=== PATIENT | male | born 2000 | race Two or more races ===

== ENCOUNTER → 2019-05-02 | Outpatient (CLI) | payer OTHER ==
--- NOTE | 2019-05-02 13:26 | KCIC ---
MRI Lumbar Spine without contrast History: Left lower extremity pain and weakness Technique: Multiplanar, multi sequential noncontrast MR imaging was performed of the lumbar spine. Comparison: June 15, 2016 Findings: Lumbar vertebral body stature and AP alignment are maintained. There is again ralk-au-wihawbrx narrowing L5-S1 intervertebral disc space, to lesser degree at L4-5 overall similar. There is no new significant marrow edema. There is posterior L4-5 annular tear, more apparent on this exam. Conus terminates near T12-L1. L1-L2, L2-3: These levels were not included on the axial images, spinal canal and neural foramina overall adequate L3-L4: Neural foramina and spinal canal are adequate. L4-L5: There is again very shallow posterior extrusion extending slightly below the intervertebral disc space centrally without neural impingement. Spinal canal and neural foramina remain adequate. L5-S1: There is small left laminectomy defect. Previously seen protrusion/extrusion in the left lateral recess is no longer present. There is negligible disc osteophyte complex. There is no displacement of the descending S1 nerve roots. There is mild cystic dilatation of the descending left S1 nerve root sleeve. No contrast was given to evaluate for underlying enhancing fibrosis. Neural foramina are overall adequate. Impression: 1. There is no lumbar spinal stenosis or neural foramina compromise. Previously seen extrusion/protrusion at L5-S1 is no longer present. There is again very shallow posterior extrusion extending below the L4-5 intervertebral disc space centrally without neural impingement. There is degenerative disc disease greatest at L5-S1, to a lesser degree at L4-5. Electronically signed by: Alexis Jay MD (05/02/2019 1:23 PM) [facility]-[email or web address]
== END | disposition home or self-care (01) ==
LOC: KCIC MRI 12:27
PROVIDERS: ATTEND Family Medicine
DX: M48.07 Spinal stenosis, lumbosacral region (principal); M51.37 Other intervertebral disc degeneration, lumbosacral region
CPT/HCPCS: 72148

== ENCOUNTER 2020-01-10 11:13 | Emergency (ER) | payer OTHER ==
[~2020-01-10] VITALS: Ht 188 cm; Wt 108.8 kg
[2020-01-10 11:17] VITALS: BP 162/90
--- NOTE | 2020-01-10 11:37 | PHYS DOC ---
Past Medical History Past Medical History: Other Additional Past Medical Histor: bulging disks, sciatica Past Surgical History: Other Additional Past Surgical Histo: discectomy Smoking Status: Current Every Day Smoker Alcohol Use: None General Adult EDM: Chief Complaint: WRIST PAIN HPI: HPI: Patient is a 19 year old male who presents with right wrist pain after tripping and falling onto his wrist 1 hour prior to arrival. He denies hitting his head or any loss of consciousness. Patient rates pain 6 out of 10, pain is worse with movement of his wrist, pain radiates from wrist into fingers, patient did not take any treatment prior to arrival, he reports that movement aggravates pain. Review of Systems: Review of Systems: Constitutional: Denies fever or chills. [] Musculoskeletal: See HPI Integument: Denies rash. [] Neurologic: Denies headache, focal weakness or sensory changes. [] Psychiatric: Denies depression or anxiety. [] Heart Score: Risk Factors: Risk Factors: DM, Current or recent (<one month) smoker, HTN, HLP, family history of CAD, obesity. Risk Scores: Score 0 - 3: 2.5% MACE over next 6 weeks - Discharge Home Score 4 - 6: 20.3% MACE over next 6 weeks - Admit for Clinical Observation Score 7 - 10: 72.7% MACE over next 6 weeks - Early Invasive Strategies Allergies: Allergies: Allergies Coded Allergies Type Severity Reaction Last Updated Verified No Known Drug Allergies 09/21/19 No Physical Exam: PE: Constitutional: Well developed, well nourished, no acute distress, non-toxic appearance. [] HENT: Normocephalic, atraumatic, bilateral external ears normal, nose normal. [] Eyes: PERRLA, EOMI, conjunctiva normal, no discharge. [] Neck: Normal range of motion, no stridor. [] Cardiovascular:Heart rate regular rhythm Lungs & Thorax: Respirations even and unlabored, no retractions, no respiratory distress Skin: Warm, dry, no erythema, no rash. [] Extremities: Right hand/right wrist/right wrist: no cyanosis; swelling to the radial aspect of R wrist and hand, sensation intact, cap refill less than 2 se conds, radial pulse 2+, full extension and flexion of all 5 digits with pain in hand and limited range of motion of wrist. Neurologic: Alert and oriented X 3, no focal deficits noted. [] Psychologic: Affect normal, judgement normal, mood normal. [] EKG: EKG: [] Radiology/Procedures: Radiology/Procedures: PROCEDURE: HAND RIGHT 3V WRIST 3V RIGHT, HAND RIGHT 3V History: Pain. Reason: fell onto hand/wrist / Spl. Instructions: / History: Technique: 3 views right wrist and 3 views right hand. Comparison: None. Findings: Acute comminuted intra-articular distal radial fracture with dorsal angulation. Possible nondisplaced ulnar styloid fracture. No dislocation. Normal alignment of the hand. Impression: 1. Acute comminuted intra-articular distal radial fracture with dorsal angulation. 2. Possible nondisplaced ulnar styloid fracture. [] Course & Med Decision Making: Course & Med Decision Making Pertinent Labs and Imaging studies reviewed. (See chart for details) [] Dragon Disclaimer: Dragon Disclaimer: This electronic medical record was generated, in whole or in part, using a voice recognition dictation system. Departure Departure Impression: Primary Impression: Closed comminuted fracture of proximal radius Qualified Codes: S52.181A - Other fracture of upper end of right radius, initial encounter for closed fracture Additional Impression: Fracture of right ulnar styloid Qualified Codes: S52.614A - Nondisplaced fracture of right ulna styloid process, initial encounter for closed fracture Disposition: 01 HOME, SELF-CARE Condition: STABLE Referrals: MILADIS OLMOS MD (PCP) MIRIAM PINK II, MD Patient Instructions: Radius Fracture with [facility] Additional Instructions: Fill prescription(s) and use as directed. Recommend application of ice, elevation, and rest of affected extremity. Wear the splint that was placed until follow up appointment, call Dr. Pink's office for follow up appointment. Return to the ER if your symptoms worsen. Scripts Hydrocodone Bit/Acetaminophen (HYDROCODONE-APAP 5-325 ) 1 Tab Tablet 1 TAB PO PRN Q6HRS PRN for PAIN for 5 Days, #20 TAB 0 Refills Prov: TASNEEMNORMAASHLEY CANDY FORMING MACHINE OPERATOR 01/10/20 Justicifation of Admission Dx: Justifications for Admission: Justification of Admission Dx: N/A Splinting Splinting : Location: R wrist Hand-Made Type: orthoglass Splint: sugar-tong Pre-Proc Neuro Vasc Exam: normal Post-Proc Neuro Vasc Exam: normal, unchanged from pre-exam ASHLEY MASON CANDY FORMING MACHINE OPERATOR Jan 10, 2020 11:37
[2020-01-10] MEDS ORDERED: HYDROcodone/APAP 5/325MG 1 TAB TABLET PO ONE (12:30)
--- NOTE | 2020-01-10 12:30 | RAD ---
WRIST 3V RIGHT, HAND RIGHT 3V History: Pain. Reason: fell onto hand/wrist / Spl. Instructions: / History: Technique: 3 views right wrist and 3 views right hand. Comparison: None. Findings: Acute comminuted intra-articular distal radial fracture with dorsal angulation. Possible nondisplaced ulnar styloid fracture. No dislocation. Normal alignment of the hand. Impression: 1. Acute comminuted intra-articular distal radial fracture with dorsal angulation. 2. Possible nondisplaced ulnar styloid fracture. Electronically signed by: Monico Al DO (01/10/2020 12:28 PM) [id number]
[2020-01-10] MEDS ORDERED: HYDR-2761 PO (12:38)
== END 2020-01-10 12:57 | disposition home or self-care (01) ==
LOC: ER 11:13
DX: S52.181A Other fracture of upper end of right radius, initial encounter for closed fracture (principal); S52.614A Nondisplaced fracture of right ulna styloid process, initial encounter for closed fracture; F17.200 Nicotine dependence, unspecified, uncomplicated; W01.0XXA Fall on same level from slipping, tripping and stumbling without subsequent striking against object, initial encounter; Y93.89 Activity, other specified; Y92.89 Other specified places as the place of occurrence of the external cause; Y99.8 Other external cause status
CPT/HCPCS: 29125; 73110; 73130; 99284; A4565

== ENCOUNTER 2020-04-29 17:31 | Emergency (ER) | payer OTHER ==
[~2020-04-29] VITALS: Ht 188 cm; Wt 100.0 kg
[~2020-04-29 17:31] MED LIST changes: -ALBU2.5V8 INH; -AZIT250T6 PO; -IBUP-1007 PO; -METH4TAB2 PO; -ONDA4TAB12 PO
[2020-04-29] MEDS ORDERED: IV NORMAL SALINE 1000ML BAG 1,000 ML IV SCH (18:13)
[2020-04-29] MEDS ORDERED: methylPREDNISolone SOD SUCC PF 125 MG/2 ML VIAL. IV ONE (18:15)
[2020-04-29] MEDS ORDERED: cefTRIAXone IV Push 1 GM VIAL. IVP ONE (18:15)
[2020-04-29] MEDS ORDERED: AZITHRMYCN 500MG IVPB FOR OMNI 250 ML IV ONE (18:15)
[2020-04-29] MEDS ORDERED: fentaNYL PF VIAL 100 MCG/2 ML VIAL IVP ONE (19:00)
[2020-04-29 19:16] LABS: BASO # 0.1 x10^3/uL (0.0-0.2); BASO % 1 % (0-3); EOS # 0.1 x10^3/uL (0.0-0.7); EOS % 0 % (0-3); HEMATOCRIT 35.2 % (39.0-53.0); HEMOGLOBIN 12.3 g/dL (13.0-17.5); LYMPH # 1.7 x10^3/uL (1.0-4.8); LYMPH % 10 % (24-48); MEAN CORPUSCULAR HEMOGLOBIN 28 pg (25-35); MEAN CORPUSCULAR HGB CONC 35 g/dL (31-37); MEAN CORPUSCULAR VOLUME 81 fL (79-100); MONO # 0.4 x10^3/uL (0.0-1.1); MONO % 3 % (0-9); NEUT # 15.2 x10^3/uL (1.8-7.7); NEUT % 87 % (31-73); PLATELET COUNT 412 x10^3/uL (140-400); RED BLOOD COUNT 4.36 x10^6/uL (4.30-5.70); WHITE BLOOD COUNT 17.5 x10^3/uL (4.0-11.0)
[2020-04-29 19:25] LABS: GFR 94.3
[2020-04-29 19:32] LABS: ALBUMIN 3.2 g/dL (3.4-5.0); ALBUMIN/GLOBULIN RATIO 0.7 (1.0-1.7); TOTAL BILIRUBIN 0.6 mg/dL (0.2-1.0); TOTAL PROTEIN 8.1 g/dL (6.4-8.2)
--- NOTE | 2020-04-29 19:42 | PHYS DOC ---
Past Medical History Past Medical History: Other Additional Past Medical Histor: bulging disks, sciatica Past Surgical History: Other Additional Past Surgical Histo: discectomy,BACK X2 Smoking Status: Former Smoker Alcohol Use: Rarely General Adult EDM: Chief Complaint: SHORTNESS OF BREATH HPI: HPI: Patient is a 19 year old male who presents with 1 week of nausea, dizziness, exertional shortness of breath, cough, fever. He denies chest pain but states when he takes a deep breath he begins to cough and then he has chest pain. Patient has a history of lumbar surgeries, sciatica, former smoker. He was sent over by Dr. Coley's office with bilateral pneumonia. Patient states that he had a Covid test yesterday and he will find out what his results are tomorrow. Laury ent is tachypneic. He is tachycardic. Review of Systems: Review of Systems: Constitutional: + fever or chills. [] Eyes: Denies change in visual acuity. [] HENT: Denies nasal congestion or sore throat. [] Respiratory: + cough or +shortness of breath. [] Cardiovascular: + chest pain with taking a deep breath and cough or denies edema. [] GI: Denies abdominal pain. + nausea, denies vomiting, bloody stools or diarrhea. [] : Denies dysuria. [] Musculoskeletal: + back pain or denies joint pain. [] Integument: Denies rash. [] Neurologic: Denies headache, focal weakness or sensory changes. +Dizziness when up and moving and having shortness of breath [] Endocrine: Denies polyuria or polydipsia. [] Lymphatic: Denies swollen glands. [] Psychiatric: Denies depression or anxiety. [] Heart Score: Risk Factors: Risk Factors: DM, Current or recent (<one month) smoker, HTN, HLP, family history of CAD, obesity. Risk Scores: Score 0 - 3: 2.5% MACE over next 6 weeks - Discharge Home Score 4 - 6: 20.3% MACE over next 6 weeks - Admit for Clinical Observation Score 7 - 10: 72.7% MACE over next 6 weeks - Early Invasive Strategies Current Medications: Current Medications Medications (Trade) Dose Ordered Sig/Patricia Start Time Stop Time Status Last Admin Dose Admin Azithromycin 250 ml @ 250 mls/hr 1X ONCE 04/29/20 18:15 04/29/20 19:14 DC Ceftriaxone Sodium (Rocephin) 1 gm 1X ONCE 04/29/20 18:15 04/29/20 18:16 DC Fentanyl Citrate (Fentanyl 2ml Vial) 50 mcg 1X ONCE 04/29/20 19:00 04/29/20 19:01 DC Methylprednisolone Sodium Succinate (SOLU-Medrol 125MG VIAL) 125 mg 1X ONCE 04/29/20 18:15 04/29/20 18:16 DC Sodium Chloride 1,000 ml @ 1,000 mls/hr Q1H 04/29/20 18:13 04/29/20 19:12 DC Allergies: Allergies: Allergies Coded Allergies Type Severity Reaction Last Updated Verified No Known Drug Allergies 09/21/19 No Physical Exam: PE: Constitutional: Well developed, well nourished, no acute distress, non-toxic appearance. [] HENT: Normocephalic, atraumatic, bilateral external ears normal, oropharynx moist, no oral exudates, nose normal. [] Eyes: PERRLA, EOMI, conjunctiva normal, no discharge. [] Neck: Normal range of motion, no tenderness, supple, no stridor. [] Cardiovascular:Heart rate regular rhythm, no murmur [] Lungs & Thorax: Bilateral upper breath sounds clear and lower diminished to auscultation [] Abdomen: Bowel sounds normal, soft, no tenderness, no masses, no pulsatile masses. [] Skin: Warm, dry, no erythema, no rash. [] Back: No tenderness, no CVA tenderness. [] Extremities: No tenderness, no cyanosis, no clubbing, ROM intact, no edema. [] Neurologic: Alert and oriented X 3, normal motor function, normal sensory function, no focal deficits noted. [] Psychologic: Affect normal, judgement normal, mood normal. [] Current Patient Data: Labs: Laboratory Tests Test 04/29/20 18:45 White Blood Count 17.5 x10^3/uL (4.0-11.0) H Red Blood Count 4.36 x10^6/uL (4.30-5.70) Hemoglobin 12.3 g/dL (13.0-17.5) L Hematocrit 35.2 % (39.0-53.0) L Mean Corpuscular Volume 81 fL (79-100) Mean Corpuscular Hemoglobin 28 pg (25-35) Mean Corpuscular Hemoglobin Concent 35 g/dL (31-37) Red Cell Distribution Width 14.0 % (11.5-14.5) Platelet Count 412 x10^3/uL (140-400) H Neutrophils (%) (Auto) 87 % (31-73) H Lymphocytes (%) (Auto) 10 % (24-48) L Monocytes (%) (Auto) 3 % (0-9) Eosinophils (%) (Auto) 0 % (0-3) Basophils (%) (Auto) 1 % (0-3) Neutrophils # (Auto) 15.2 x10^3/uL (1.8-7.7) H Lymphocytes # (Auto) 1.7 x10^3/uL (1.0-4.8) Monocytes # (Auto) 0.4 x10^3/uL (0.0-1.1) Eosinophils # (Auto) 0.1 x10^3/uL (0.0-0.7) Basophils # (Auto) 0.1 x10^3/uL (0.0-0.2) Platelet Estimate Pending Laboratory Tests 04/29/20 18:45 Vital Signs: Vital Signs Date Time Temp Pulse Resp B/P (MAP) Pulse Ox O2 Delivery O2 Flow Rate FiO2 04/29/20 18:09 98.4 92 24 128/77 (94) Room Air 98.0 98.4 EKG: EK and read by Dr. Rehman as sinus rhythm and no STEMI Radiology/Procedures: Radiology/Procedures: [] Impression: [facility] [address] [place] [address] IMAGING REPORT Signed PATIENT: JENNIFER DOSS LACCOUNT: [id number] : 2000 LOCATION: [facility] AGE: 19 SEX: M EXAM STATUS: REG CLI ORD. PHYSICIAN: MILADIS COLEY MD REASON: COUGH PROCEDURE: CHEST PA & LATERAL CHEST PA LATERAL INDICATION: COUGH COMPARISON STUDY: None. FINDINGS: Lungs: Normal lung volume. Bilateral perihilar and basilar heterogeneous opacity. Indistinct central vasculature. Pleura: No pleural effusion or pneumothorax. Heart and Mediastinum: The cardiomediastinal silhouette is normal. The great vessels of the thorax are normal. Bones and Soft Tissues: The bones and soft tissues are within normal limits. IMPRESSION: Bilateral perihilar and basilar heterogeneous opacities, probably representing an infectious process although pulmonary edema could have a similar appearance. Electronically signed by: Junior Kee MD (04/29/2020 11:40 AM) [id number] DICTATED and SIGNED BY: JUNIOR KEE MD DATE: 04/29/20 1140 [facility] [address] [place] [address] IMAGING REPORT Signed PATIENT: JENNIFER DOSSOUNT: [id number] : 2000 LOCATION: ER AGE: 19 SEX: M EXAM STATUS: REG ER ORD. PHYSICIAN: JOÃO VALDEZ APRN REASON: soa, pain with breathing, PUI PROCEDURE: CT ANGIOGRAPHY CHEST Exam: CT of chest with contrast INDICATION: Short of air TECHNIQUE: Sequential axial images through the chest obtained following the administration of 100 mL of Isovue-370 IV contrast. Sagittal and coronal reformatted images were reconstructed from the axial data and reviewed. 3-D reformatted images were reconstructed from the axial data and reviewed. Comparisons: Chest x-ray same day FINDINGS: Visualized portions of the thyroid are unremarkable. No enlarged mediastinal lymph nodes are identified. Heart size is normal. No pericardial effusion. Thoracic aorta has a normal course and caliber. Pulmonary artery is not enlarged. No pulmonary embolus identified within the main, lobar or segmental pulmonary arteries. Airways are patent. Patchy diffuse groundglass opacity and consolidative changes noted predominantly at the upper lobes bilaterally. No pleural effusion or thickening. Visualized upper abdomen is unremarkable. No suspicious osseous lesions or acute fractures. IMPRESSION: 1. Diffuse bilateral airspace disease with peripheral sparing noted predominantly at the upper lungs. Findings favored represent atypical/viral infection. Correlate for immunocompromised status. 2. No pulmonary embolus identified within the main, lobar or segmental pulmonary arteries. Exposure: One or more of the following in the visualized dose reduction techniques were utilized for this examination: 1. Automated exposure control 2. Adjustment of the MA and/or KV according to patient size 3. Use of iterative of reconstructive technique Electronically signed by: Sabino Vazquez MD (04/29/2020 9:56 PM) [facility] DICTATED and SIGNED BY: SABINO VAZQUEZ MD DATE: 04/29/202155 Course & Med Decision Making: Course & Med Decision Making Pertinent Labs and Imaging studies reviewed. (See chart for details) COVID-19 CRITERIA: The patient was evaluated during the global COVID-19 pandemic, and that diagnosis was suspected/considered upon their initial presentation. Their evaluation, treatment and testing was consistent with current guidelines for patients who present with complaints or symptoms that may be related to COVID-19. See HPI. Lungs are clear in upper lobes and diminished in lower lobes. Abdomen soft and nontender. Skin pink warm and dry. Speaks in full clear sentences. Patient had a dry cough. No extremity edema. Is getting Rocephin and azithromycin IV antibiotic and a liter of normal saline. EKG shows sinus rhythm and no STEMI. White blood cell count is 17.5. Lactic acid is normal. ABG is read by Dr Rehman and he says its ok. Patient is tachypneic, has a D-dimer elevated, and is tachycardic with pleuritic pain with breathing. Assuming that he likely has Covid, pulmonary embolism is a high risk differential. For these reason a PE should be ruled out. Dr Rehman agrees with this observation and care plan. Patient is satting at 95% on room air. Heart rate remains at 100. Patient to get a total of 2 L of normal saline in the ED plus antibiotics through the IV. Patient is discharged home on azithromycin and Medrol Dosepak. I have also given the inhaler. [] Dragon Disclaimer: Dragon Disclaimer: This electronic medical record was generated, in whole or in part, using a voice recognition dictation system. COVID-19 Patient Risks: Age 65 or older: No Sign of co-morbidity: Yes Exp to person + for COVID: No Exp to PUI: No Travel from affected area: No Lower respiratory symptoms: Yes Fever: Yes PPE Use: Full PPE with N95 mask or PAPR: Yes Departure Departure Impression: Primary Impression: Pneumonia Qualified Codes: J18.9 - Pneumonia, unspecified organism Additional Impression: Person under investigation for COVID-19 Disposition: 01 DC HOME SELF CARE/HOMELESS Condition: STABLE Referrals: NO PCP (PCP) Patient Instructions: Pneumonia, Adult Additional Instructions: Follow-up with your primary care provider. Return to the emergency room if you begin having severe shortness of breath or chest pain. Drink plenty of fluids. Take ibuprofen for your pain. Take all medications as prescribed. Take the medication with food if possible as it could upset your stomach. Scripts Albuterol Sulfate (PROAIR HFA INHALER) 8.5 Gm Hfa.aer.ad 1 PUFF INH PRN Q6HRS PRN for SHORTNESS OF BREATH, #1 INHALER 0 Refills Prov: BAFJOÃO MOULTON DICE MANAGER 04/29/20 Azithromycin (AZITHROMYCIN TABLET) 250 Mg Tablet 1 PKG PO UD for 5 Days, #6 TAB 0 Refills 2 the first day followed by 1 for days 2-5 Prov: BAFLINDA MOULTONA M DICE MANAGER 04/29/20 Ibuprofen (IBUPROFEN) 600 Mg Tablet 600 MG PO PRN Q6HRS PRN for INFLAMMATION, #25 TAB Prov: JOÃO VALDEZ DICE MANAGER 04/29/20 Ondansetron (ONDANSETRON ODT) 4 Mg Tab.rapdis 1 TAB PO PRN Q6-8HRS, #16 TAB Prov: BAFLINDA MOULTONA Tiesha DICE MANAGER 04/29/20 Methylprednisolone (MEDROL) 4 Mg Tab.ds.pk 1 PKG PO UD, #1 PKG Prov: JOÃO VALDEZ DICE MANAGER 04/29/20 BAFLINDA MOULTONA Tiesha DICE MANAGER Apr 29, 2020 19:41
[2020-04-29 19:57] LABS: % BANDS 4 % (0-9); % LYMPHS 18 % (24-48); % MONOS 3 % (0-10); % MYELOS 1 % (0-0); % SEGS 74 % (35-66); PLT ESTIMATE INCREASED (ADEQUATE); TOXIC GRANULATION SLIGHT
[2020-04-29 19:58] LABS: SCHISTOCYTES OCC
[2020-04-29] MEDS ORDERED: POTASSIUM CHLORIDE 20 MEQ TABLET.ER. PO ONE (20:00)
[2020-04-29] MEDS ORDERED: ONDANSETRON PF 4 MG/2 ML VIAL. IVP ONE (20:00)
[2020-04-29 20:27] LABS: BASE EXCESS COOX -2 mmol/L (-3-3); HCO3 COOX 21 mmol/L (21-28); METHEMOGLOBIN 0.5 % (0.0-1.9); OXYHEMOGLOBIN 93.1 %; PCO2 COOX 30 mmHg (35-46); PO2 COOX 69 mmHg (85-108); SAT O2 COOX 94 % (92-99)
[2020-04-29 20:55] LABS: PROTHROMBIN TIME PATIENT 16.2 SEC (11.7-14.0)
[2020-04-29] MEDS ORDERED: IV NORMAL SALINE 1000ML BAG 1,000 ML IV ONE (21:15)
[2020-04-29 21:17] VITALS: BP 115/69
[2020-04-29 21:23] LABS: BACTERIA,URINE 0 /HPF (0-FEW); BILIRUBIN,URINE NEGATIVE (NEG); CLARITY,URINE CLEAR; COLOR,URINE YELLOW; NITRITE,URINE NEGATIVE (NEG); PH,URINE 6.5 (<5.0-8.0); PROTEIN,URINE NEGATIVE (NEG-TRACE); UROBILINOGEN,URINE 0.2 mg/dL (0.2 mg/dL); WBC,URINE RARE /HPF (0-4)
[2020-04-29] MEDS ORDERED: CONTRAST GIVEN. MC PRN (21:45)
[2020-04-29] MEDS ORDERED: IOHEXOL 350 MG/ML 100 ML VIAL. IV ONE (21:45)
--- NOTE | 2020-04-29 21:59 | RAD ---
Exam: CT of chest with contrast INDICATION: Short of air TECHNIQUE: Sequential axial images through the chest obtained following the administration of 100 mL of Isovue-370 IV contrast. Sagittal and coronal reformatted images were reconstructed from the axial data and reviewed. 3-D reformatted images were reconstructed from the axial data and reviewed. Comparisons: Chest x-ray same day FINDINGS: Visualized portions of the thyroid are unremarkable. No enlarged mediastinal lymph nodes are identified. Heart size is normal. No pericardial effusion. Thoracic aorta has a normal course and caliber. Pulmonary artery is not enlarged. No pulmonary embolus identified within the main, lobar or segmental pulmonary arteries. Airways are patent. Patchy diffuse groundglass opacity and consolidative changes noted predominantly at the upper lobes bilaterally. No pleural effusion or thickening. Visualized upper abdomen is unremarkable. No suspicious osseous lesions or acute fractures. IMPRESSION: 1. Diffuse bilateral airspace disease with peripheral sparing noted predominantly at the upper lungs. Findings favored represent atypical/viral infection. Correlate for immunocompromised status. 2. No pulmonary embolus identified within the main, lobar or segmental pulmonary arteries. Exposure: One or more of the following in the visualized dose reduction techniques were utilized for this examination: 1. Automated exposure control 2. Adjustment of the MA and/or KV according to patient size 3. Use of iterative of reconstructive technique Electronically signed by: Sabino Jorgensen MD (04/29/2020 9:56 PM) [facility]
[2020-04-29] MEDS ORDERED: AZIT250T6 PO (22:07)
[2020-04-29] MEDS ORDERED: IBUP-1007 PO (22:07)
[2020-04-29] MEDS ORDERED: METH4TAB2 PO (22:07)
[2020-04-29] MEDS ORDERED: ALBU2.5V8 INH (22:07)
[2020-04-29] MEDS ORDERED: ONDA4TAB12 PO (22:07)
--- NOTE | 2020-04-30 04:07 | EKG ---
[facility] [address] [place] [address] Test Date: 2020-04-29 Test Time: 18:23:29 Pat Name: JENNIFER DOSS Department: Room: Gender: M Soccer Coach: : 2000 Requested By: JOÃO VALDEZ Order Number: [id number] Reading MD: Measurements Intervals [place] Rate: 99 P: 36 CA: 154 QRS: 59 QRSD: 84 T: 7 QT: 324 QTc: 421 Interpretive Statements SINUS RHYTHM NO SPECIFIC ECG ABNORMALITIES RI6.01 No previous ECG available for comparison
--- NOTE | 2020-05-01 11:44 | NUR ---
IP: Informed pt of negative COVID test. Pt verbalized understanding.
== END 2020-04-29 23:00 | disposition home or self-care (01) ==
LOC: ER 17:31
DX: J18.9 Pneumonia, unspecified organism (principal); Z20.828 Contact with and (suspected) exposure to other viral communicable diseases; Z87.891 Personal history of nicotine dependence
CPT/HCPCS: 36415; 36600; 71275; 80053; 81001; 82805; 83605; 83880; 84484; 85007; 85025; 85379; 85610; 87040; 93005; 96361; 96365; 96375; 99285; C9803; J0456; J0696; J2405; J2930; J3010; J7030; Q9967; U0003

== ENCOUNTER → 2020-04-29 | Outpatient (CLI) | payer OTHER ==
[~2020-04-29] MED LIST: ALBU2.5V8 INH; AZIT250T6 PO; HYDR-2761 PO; IBUP-1007 PO; METH4TAB2 PO; ONDA4TAB12 PO
--- NOTE | 2020-04-29 11:43 | RAD ---
CHEST PA LATERAL INDICATION: COUGH COMPARISON STUDY: None. FINDINGS: Lungs: Normal lung volume. Bilateral perihilar and basilar heterogeneous opacity. Indistinct central vasculature. Pleura: No pleural effusion or pneumothorax. Heart and Mediastinum: The cardiomediastinal silhouette is normal. The great vessels of the thorax are normal. Bones and Soft Tissues: The bones and soft tissues are within normal limits. IMPRESSION: Bilateral perihilar and basilar heterogeneous opacities, probably representing an infectious process although pulmonary edema could have a similar appearance. Electronically signed by: Alexis Kee MD (04/29/2020 11:40 AM) [id number]
== END ==
LOC: RAD 10:24
PROVIDERS: ATTEND Family Medicine
DX: R05 Cough (principal)
CPT/HCPCS: 71046